=== PATIENT | male | born 1965 | race Caucasian/White ===

== ENCOUNTER 2017-04-27 22:37 | Emergency (ER) | payer OTHER ==
--- NOTE | ~2017-04-27 | CR142 ---
[facility] A Service of [facility] & [facility] / [facility] RADIOLOGY TEXT RESULTS PATIENT: JOHN MALONEY LOCATION: [facility]FT[facility] : 63 UNIT #: [id number] AGE: [address]: Stone Voss SEX: M ORDER DR: [id number] [facility] [address] [place] [place], [place] [address] [id number] MR#: [id number] Acc #: [id number] NAME: JOHN MALONEY : 1965 SEX: M STUDY DATE/TIME: 04/28/2017 0:32 UNIT: [facility] ROOM: STUDY DESCRIPTION: CR Hand Min 3 Views Rt Attending Physician: Stone Voss P.A.-C. Ordering Physician: Stone Voss P.A.-C. Primary Care Physician: Primary Care Physician No MEDICAL IMAGING REPORT This report is preliminary unless electronic signature is present EXAM Right hand INDICATION Trauma. Pain status post dog bite. Puncture wound between the first and second digit. Soft tissue swelling. FINDINGS Three views of the right hand without comparison. There is no acute fracture or dislocation. Alignment is anatomic. No foreign body. IMPRESSION No acute findings. Dictated by... Santhosh Aaron M.D. THIS IS AN ELECTRONICALLY VERIFIED REPORT Santhosh Aaron M.D. at 05/01/2017 2:13 PM JASMINE/shantel TD: 04/28/2017 06:58 JOB #: [id number] MEDICAL IMAGING REPORT Page 1 of 1 COPY
== END 2017-04-28 01:10 | disposition home or self-care (01) ==
LOC: CED 22:37 → CFTX 22:37
DX: S61.451A Open bite of right hand, initial encounter (principal); F17.210 Nicotine dependence, cigarettes, uncomplicated; W54.0XXA Bitten by dog, initial encounter; Y92.098 Other place in other non-institutional residence as the place of occurrence of the external cause
CPT/HCPCS: 73130; 99283